=== PATIENT | male | born 1975 | race Caucasian/White ===

== ENCOUNTER 2017-06-16 21:48 | Emergency (ER) | payer OTHER ==
[~2017-06-16] VITALS: Ht 104.1 cm; Wt 90.0 kg
[2017-06-16 21:56] VITALS: Ht 104.1 cm; Wt 90.0 kg
[2017-06-16] MEDS ORDERED: LIDOCAINE/MYLANTA 40 ML BTL PO ONE (22:30)
--- NOTE | 2017-06-16 22:41 | ERD ---
ER Documentation Chief Complaint Chief Complaint epigastric pain x 5 days, worse today. +nausea. hx gastritis HPI 41-year-old male presents to emergency department for complaints of epigastric pain for 5 days, patient describes the pain as sharp pain, 6/10 scale, accompanied with acid reflux, and mid chest pain. Patient has history of gastritis. Patient has been taking omeprazole with only mild relief. Patient denies any fever or chills. Patient states that he has been burping a lot. ROS All systems reviewed and are negative except as per history of present illness. Medications Home Meds Reported Medications [none] Unknown Strength No Conflict Check 06/16/17 Allergies Allergies: Coded Allergies: No Known Allergy (Unverified , 06/16/17) PMhx/Soc Medical and Surgical Hx: pt denies Medical Hx, pt denies Surgical Hx Hx Alcohol Use: No Hx Substance Use: No Hx Tobacco Use: No Smoking Status: Never smoker FmHx Family History: No coronary disease, No diabetes, No other Physical Exam Vitals Vital Signs Date Time Temp Pulse Resp B/P Pulse Ox O2 Delivery O2 Flow Rate FiO2 06/16/17 21:56 98.5 60 18 162/77 100 Physical Exam GENERAL: The patient is well developed and appropriate for usual state of health, in no apparent distress. CHEST: Clear to auscultation bilaterally. There are no rales, wheezes or rhonchi. HEART: Regular rate and rhythm. No murmurs, clicks, rubs or gallops. No S3 or S4. ABDOMEN: Soft, nontender and nondistended. Good bowel sounds. No rebound or guarding. No gross peritonitis. No gross organomegaly or masses. No Thompson sign or McBurney point tenderness. BACK: No midline or flank tenderness. EXTREMITIES: Equal pulses bilaterally. There is no peripheral clubbing, cyanosis or edema. No focal swelling or erythema. Full range of motion. Grossly neurovascularly intact. NEURO: Alert and oriented. Cranial nerves 2-12 intact. Motor strength in all 4 extremities with 5/5 strength. Sensation grossly intact. Normal speech and gait. SKIN: There is no apparent rash or petechia. The skin is warm and dry. HEMATOLOGIC AND LYMPHATIC: There is no evidence of excessive bruising or lymphedema. No gross cervical, axillary, or inguinal lymphadenopathy. Result Diagram: 06/16/17 2340 06/16/17 2340 Results 24 hrs Laboratory Tests Test 06/16/17 23:40 White Blood Count 8.510^3/ul Red Blood Count 4.8210^6/ul Hemoglobin 15.5g/dl Hematocrit 42.3% Mean Corpuscular Volume 87.8fl Mean Corpuscular Hemoglobin 32.2pg Mean Corpuscular Hemoglobin Concent 36.6g/dl Red Cell Distribution Width 13.3% Platelet Count 42886^3/UL Mean Platelet Volume 11.6fl Neutrophils % 49.2% Lymphocytes % 39.9% Monocytes % 6.0% Eosinophils % 3.9% Basophils % 0.6% Nucleated Red Blood Cells % 0.0/100WBC Neutrophils # 4.210^3/ul Lymphocytes # 3.410^3/ul Monocytes # 0.510^3/ul Eosinophils # 0.310^3/ul Basophils # 0.110^3/ul Nucleated Red Blood Cells # 0.010^3/ul Sodium Level 144mmol/L Potassium Level 3.9mmol/L Chloride Level 107mmol/L Carbon Dioxide Level 27mmol/L Anion Gap 14 Blood Urea Nitrogen 20mg/dl Creatinine 1.06mg/dl Glucose Level 87mg/dl Calcium Level 9.6mg/dl Troponin I < 0.012ng/ml Current Medications Medications (Trade) Dose Ordered Sig/Shahrzad Route PRN Reason Start Time Stop Time Status Last Admin Dose Admin Miscellaneous Medication (Gi Cocktail (2)) 40 ml ONCE ONCE PO 06/16/17 22:30 06/16/17 22:31 DC 06/16/17 23:09 Patient was given medication for pain here in emergency department, after treatment, patient verbalized feeling much better. Patient's pain is improved. EKG was done, read by me and is as tenderness bradycardia at 47 bpm, with left ventricular hypertrophy with QRS widening, normal axis, there is no ST changes or changes in the EKG that indicates any cardiac emergencies at this time. Patient's EKG was also reviewed by Dr. Mendenhall. Impression: abnormal ECG Heart Score 1: 0.9-1.7% risk of adverse cardiac event. History: Slightly suspicious - 0 Age: <45 - 0 EKG: normal -1 (no ST changes, no LBBB,) Risk Factors - 0 Initial Troponin : - 0 less than normal limit PROCEDURE: US right upper quadrant CLINICAL INDICATION: Abdominal pain TECHNIQUE: Multiple real-time images were acquired of the patient's right upper abdomen utilizing a high resolution transducer. COMPARISON: None available FINDINGS: The examination is limited by bowel gas Liver: Normal in size, contour and echogenicity. Normal directional blood flow is seen within the patent main portal vein. The maximum dimension estimated at 15.2 cm . Gallbladder: Normal. No sonographic Thompson's sign is reported. Common bile duct: Normal; 4.2 mm. There is no evidence for choledocholithiasis. Right Kidney: Normal; maximum length measured at approximately 11.1 cm. Pancreas: Obscured by bowel gas. RPTAT:HJJR IMPRESSION: 1. Bowel gas obscures visualization of the pancreas and limits the examination. 2. No evidence of cholelithiasis. Physician Swati Date Time Electronically viewed and signed by Physician Swati on 06/16/2017 23:29 JR/ CC: SHER WARREN INBOUND SALES MANAGER PROCEDURE: XR Chest. CLINICAL INDICATION: Chest pain. TECHNIQUE: Single frontal view of the chest. COMPARISON: None. FINDINGS: Cardiomegaly. The lungs are clear. No signs of pleural fluid or pneumothorax are seen. The osseous structures and soft tissues are unremarkable. IMPRESSION: No evidence for active cardiopulmonary disease. RPTAT: [facility] Physician Laney Date Time Electronically viewed and signed by Physician Laney on 06/16/2017 23:33 RS/ CC: SHER WARREN INBOUND SALES MANAGER Procedures/MDM Medical Decision Making: Patient's epigastric pain nonspecific at this time, most likely from gastritis. Can be peptic ulcer disease. Negative cardiopulmonary emergency at this time, negative troponin, heart score is low. there is low suspicion for abdominal emergencies at this time. Patients abdominal exam is normal at this time. Patients radiology exam does not show any abdominal emergencies at this time. There is low suspicion for appendicitis , cholecystitis, abdominal aortic aneurysms or peritonitis at this time. There is low suspicion for sepsis. Patient appears well and is hemodynamically stable. Negative troponin puts patient is low risk for coronary syndrome considering patient has been having symptoms for 3 days. Disposition: Home. Condition: Stable Prescription Mylanta, [place], Protonix Instructions: Patient is advised to take medications as prescribed. Patient is advised to rest, increase fluid intake and do brat diet for next 1-2 days and progress as tolerated. Patient is advised that if symptoms are worse, severe abdominal pain, uncontrolled vomiting, high fever, severe flank pain, worst signs and symptoms, to return to the emergency department immediately. Otherwise, patient can follow up with primary care doctor in 5-7 days. Disclaimer: Inadvertent spelling and grammatical errors are likely due to EHR/ dictation software use and do not reflect on the overall quality of patient care. Also, please note that the electronic time recorded on this note does not necessarily reflect the actual time of the patient encounter. Departure Diagnosis: Primary Impression: Epigastric pain Condition: Stable Patient Instructions: Epigastric Pain (Uncertain Cause) Additional Instructions: : Patient is advised to take medications as prescribed. Patient is advised to rest, increase fluid intake and do brat diet for next 1-2 days and progress as tolerated. Patient is advised that if symptoms are worse, severe abdominal pain , uncontrolled vomiting, high fever, severe flank pain, worst signs and symptoms , to return to the emergency department immediately. Otherwise, patient can follow up with primary care doctor in 5-7 days. SHER WARREN NP Jun 16, 2017 22:41
--- NOTE | 2017-06-16 23:29 | RADRPT ---
PROCEDURE: US right upper quadrant CLINICAL INDICATION: Abdominal pain TECHNIQUE: Multiple real-time images were acquired of the patient's right upper abdomen utilizing a high resolution transducer. COMPARISON: None available FINDINGS: The examination is limited by bowel gas Liver: Normal in size, contour and echogenicity. Normal directional blood flow is seen within the p atent main portal vein. The maximum dimension estimated at 15.2 cm . Gallbladder: Normal. No sonographic Thompson's sign is reported. Common bile duct: Normal; 4.2 mm. There is no evidence for choledocholithiasis. Right Kidney: Normal; maximum length measured at approximately 11.1 cm. Pancreas: Obscured by bowel gas. RPTAT:HJJR IMPRESSION: 1. Bowel gas obscures visualization of the pancreas and limits the examination. 2. No evidence of cholelithiasis. Physician Swati Date Time Electronically viewed and signed by Physician Swati on 06/16/2017 23:29 /
--- NOTE | 2017-06-16 23:33 | RADRPT ---
PROCEDURE: XR Chest. CLINICAL INDICATION: Chest pain. TECHNIQUE: Single frontal view of the chest. COMPARISON: None. FINDINGS: Cardiomegaly. The lungs are clear. No signs of pleural fluid or pneumothorax are seen. The osseous s tructures and soft tissues are unremarkable. IMPRESSION: No evidence for active cardiopulmonary disease. RPTAT: [facility] Physician Laney Date Time Electronically viewed and signed by Physician Laney on 06/16/2017 23:33 RS/
[2017-06-17 00:25] LABS: ANION GAP 14 (8-16); BLOOD UREA NITROGEN 20 mg/dl (7-20); CALCIUM 9.6 mg/dl (8.4-10.2); CARBON DIOXIDE 27 mmol/L (21-31); CHLORIDE 107 mmol/L (97-110); CREATININE 1.06 mg/dl (0.61-1.24); GLUCOSE 87 mg/dl (70-220); POTASSIUM 3.9 mmol/L (3.5-5.1); SODIUM 144 mmol/L (135-144)
[2017-06-17 00:37] LABS: TROPONIN-I < 0.012 ng/ml (0.00-0.12)
[2017-06-17 01:09] LABS: BASOPHIL # 0.1 10^3/ul (0.0-0.1); BASOPHILS % 0.6 % (0.0-2.0); EOSINOPHILS # 0.3 10^3/ul (0.0-0.5); EOSINOPHILS % 3.9 % (0.0-7.0); HEMATOCRIT 42.3 % (42.0-52.0); HEMOGLOBIN 15.5 g/dl (14.0-18.0); LYMPHOCYTES # 3.4 10^3/ul (0.8-2.9); LYMPHOCYTES % 39.9 % (15.0-51.0); MEAN CORPUSCULAR HEMOGLOBIN 32.2 pg (29.0-33.0); MEAN CORPUSCULAR HGB CONC 36.6 g/dl (32.0-37.0); MEAN CORPUSCULAR VOLUME 87.8 fl (82.0-101.0); MEAN PLATELET VOLUME 11.6 fl (7.4-10.4); MONOCYTE # 0.5 10^3/ul (0.3-0.9); NEUTROPHIL # 4.2 10^3/ul (1.6-7.5); NEUTROPHILS % 49.2 % (39.0-77.0); PLATELET COUNT 211 10^3/UL (140-415); RED BLOOD COUNT 4.82 10^6/ul (4.70-6.10); RED CELL DISTRIBUTION WIDTH 13.3 % (11.5-14.5); WHITE BLOOD COUNT 8.5 10^3/ul (4.8-10.8)
[2017-06-17] MEDS ORDERED: MAG-19 PO (01:57)
[2017-06-17] MEDS ORDERED: PANT40TA3 PO (01:57)
[2017-06-17] MEDS ORDERED: HYDR-906 PO (01:57)
[2017-06-17 02:09] VITALS: BP 148/74; PULSE 62; RESP 18; TEMP 98.5
== END 2017-06-17 02:09 | disposition home or self-care (01) ==
LOC: FTE 21:48
DX: R10.13 Epigastric pain (principal)
CPT/HCPCS: 36415; 71010; 76705; 80048; 84484; 85025; 93005; Z7502; Z7610

== ENCOUNTER 2017-07-29 05:40 | Day surgery (SDC) | payer OTHER ==
[~2017-07-29] VITALS: Ht 165.1 cm; Wt 89.2 kg
[~2017-07-29 05:40] MED LIST: HYDR-906 PO; MAG-19 PO; PANT40TA3 PO
[2017-07-29 06:31] VITALS: Ht 165.1 cm; Wt 89.2 kg
[2017-07-29] MEDS ORDERED: PANTOPRAZOLE (06:44)
[2017-07-29 07:22] VITALS: BP 122/74; PULSE 57; RESP 18
--- NOTE | 2017-07-29 07:37 | OPPN ---
Date/Time of Note Date/Time of Note DATE: 07/29/17 TIME: 07:36 Operative Report Preoperative Diagnosis Chronic heartburn Postoperative Diagnosis Hiatal hernia Gastroesophageal reflux disease Gastritis with erosions Operation/Procedure Performed Esophagogastroduodenoscopy and biopsy Surgeon see signature line assistant in nursing None Anesthesia: moderate sedation Estimated blood loss: none Transfusion Required none Specimen Gastric mucosal biopsy Grafts/Implants none Complications none BETH SALGADO MD Jul 29, 2017 07:37
[2017-07-29] MEDS ORDERED: MIDAZOLAM 1 MG/ML 2 ML INJ ONE ×2 (07:40)
[2017-07-29] MEDS ORDERED: FENTAnyl 50 MCG/ML VIAL ONE (07:41)
--- NOTE | 2017-07-30 05:05 | GILP ---
DATE OF PROCEDURE: NAME OF PROCEDURES: Esophagogastroduodenoscopy and biopsy. SURGEON: Beth Mazariegos MD. PREOPERATIVE DIAGNOSIS: Chronic heartburn. POSTOPERATIVE DIAGNOSES: 1. Hiatal hernia. 2. Gastroesophageal reflux disease. 3. Gastritis with erosions. 4. Gastric mucosal biopsies were taken for Helicobacter pylori test. INDICATION FOR THE PROCEDURE: Mr. Rian Williamson is a 41-year-old male patient who had chroni c heartburn not responding to therapy. The patient was scheduled for endoscopic examination for fur ther evaluation. The procedure and possible complications were well explained to the patient. The patient understood and consented to the procedure. DESCRIPTION OF PROCEDURE: Under the influence of fentanyl and Versed, the gastroscope was carefully introduced into the esophagus and under direct vision, it was advanced to the stomach and through t he pylorus into the duodenal bulb and descending duodenum. FINDINGS: ESOPHAGUS: The patient had hiatal hernia and gastroesophageal reflux disease. STOMACH: He had gastritis with erosions. Gastric mucosal biopsies were taken for H. pylori test. Duodenum was normal. He tolerated the procedure very well and there was no complication from the procedure. At the end o f the procedure, he was awake with stable vital signs and he was discharged home to the care of his family. IMPRESSION: Please see postoperative diagnoses. PLAN: 1. Pantoprazole 40 mg p.o. q.a.m. 2. Await H. pylori test report. Dictated By: BETH LLANES/JANES Conf#: [id number] DID#: [id number]
--- NOTE | 2017-07-31 14:20 | CONS ---
DATE OF ADMISSION: 07/29/2017 DATE OF CONSULTATION: PATIENT NAME: MILA ACEVES PREOPERATIVE GASTROENTEROLOGY CONSULTATION Dear Dr. Kingsley: I thank you very much for this kind referral. HISTORY OF PRESENT ILLNESS: Mr. Mila Aceves is a 41-year-old male patient who has been referred to me for further evaluation of chronic heartburn not responding to therapy. No past history of pep tic ulcer disease. He is not taking any nonsteroidal anti-inflammatory agents. His appetite has be en good and no weight loss. No history of gallstones or liver disease. No change in the bowel habi t or rectal bleeding. He is not hypertensive or diabetic. No heart disease, lung problem or kidney disease. Nonsmoker. No alcohol abuse. No family history of gastrointestinal tract neoplasm. ALLERGIES: NO DRUG ALLERGIES. MEDICATIONS: Pantoprazole. PHYSICAL EXAMINATION: GENERAL: He is 5 feet 7 inches tall and weighs 185 pounds. HEART: Normal heart sounds. LUNGS: Clear. ABDOMEN: Soft. No masses. Normal bowel sounds. NEUROLOGIC: Normal neurological exam. IMPRESSION: 1. Chronic heartburn not responding to therapy. 2. Rule out erosive esophagitis. PLAN: 1. Pantoprazole 40 mg p.o. q.a.m. 2. Endoscopic examination for further evaluation. The procedure and possible complications were well explained to the patient. He understands and con sents to the procedure. I thank you once again. With warmest personal regards. Dictated By: BETH LLANES/JANES Conf#: [id number] DID#: [id number]
== END 2017-07-29 08:51 | disposition home or self-care (01) ==
LOC: GIL 05:40
PROVIDERS: ATTEND Internal Medicine Gastroenterology
DX: K44.9 Diaphragmatic hernia without obstruction or gangrene (principal); K21.9 Gastro-esophageal reflux disease without esophagitis; K29.70 Gastritis, unspecified, without bleeding
CPT/HCPCS: 43239; 87081; J2250; J3010; Z7610